=== PATIENT | male | born 1995 | race Caucasian/White ===

== ENCOUNTER 2018-09-16 20:05 | Emergency (ER) | payer OTHER ==
[~2018-09-16 20:05] MED LIST: ACET-66 PO; ALBU17AE27 IH; NOCURR
== END 2018-09-16 20:30 | disposition left against medical advice (07) ==
LOC: EMS 20:06
DX: Z53.21 Procedure and treatment not carried out due to patient leaving prior to being seen by health care provider (principal)

== ENCOUNTER 2018-09-29 18:52 | Emergency (ER) | payer MEDICAID, OTHER ==
[~2018-09-29] VITALS: Ht 165.1 cm; Wt 90.9 kg
[2018-09-29] MEDS ORDERED: PERTUSS(ACELL),DIPH,TET VAC/PF 0.5 ML VIAL IM ONE (20:15)
[2018-09-29] MEDS ORDERED: BACITRACIN 0.9 GM PACKET OINTMENT TP ONE (20:15)
[2018-09-29] MEDS ORDERED: BUPIVACAINE HCL/PF 0.25% 10 ML VIAL INJ ONE (20:15)
[2018-09-29] MEDS ORDERED: IBUPROFEN 600 MG TABLET PO ONE (21:15)
[2018-09-29 21:52] VITALS: BP 136/84
== END 2018-09-29 22:06 | disposition home or self-care (01) ==
LOC: EMS 18:52
DX: S61.512A Laceration without foreign body of left wrist, initial encounter (principal); S80.12XA Contusion of left lower leg, initial encounter; F43.20 Adjustment disorder, unspecified; J45.909 Unspecified asthma, uncomplicated; Y04.2XXA Assault by strike against or bumped into by another person, initial encounter; Y93.89 Activity, other specified; Y92.89 Other specified places as the place of occurrence of the external cause; Y99.8 Other external cause status
CPT/HCPCS: 12002; 73110; 73590; 90471; 90715; 99283; J3490

== ENCOUNTER 2022-12-04 17:44 | Emergency (ER) | payer MEDICAID, OTHER | END 2022-12-04 20:00 | disposition left against medical advice (07) | LOC: EMS 17:45 | DX: Z53.21 Procedure and treatment not carried out due to patient leaving prior to being seen by health care provider (principal) ==